=== PATIENT | male | born 1940 | race Caucasian/White ===

== ENCOUNTER → 2017-02-21 | Outpatient (CLI) | payer MEDICARE ==
[~2017-02-21] MED LIST: LOPE2 PO; OMEP20TA39 PO; TYLE500T PO
== END ==
LOC: CLAB 11:58
PROVIDERS: ATTEND Internal Medicine Cardiovascular Disease
DX: R06.02 Shortness of breath (principal)
CPT/HCPCS: 36415; 85379

== ENCOUNTER → 2017-04-11 | Outpatient (CLI) | payer MEDICARE ==
--- NOTE | 2017-04-29 10:07 | RSPPFT ---
DATE OF PROCEDURE: 04/11/17 COMMENTS: VOLUMES DYNAMIC: FVC and FEV1 mildly reduced. STATIC: TLC mildly reduced; FRC and RV normal. FLOWS: FEV1% and FEF 25-75 normal. DIFFUSION: Mildly reduced. FLOW VOLUME LOOP: Mild restrictive configuration. IMPRESSION: Mild restrictive ventilatory defect with no significant airways obstruction. Mild reduction in diffusion. No significant improvement after bronchodilator.
== END ==
LOC: HRSP 09:46
PROVIDERS: ATTEND Internal Medicine
DX: R06.02 Shortness of breath (principal)
CPT/HCPCS: 94060; 94620; 94726; 94729